=== PATIENT | male | born 2000 | race Two or more races ===

== ENCOUNTER 2021-02-26 13:47 | Outpatient (CLI) | payer OTHER | END 2021-02-26 14:13 | disposition home or self-care (01) | LOC: LAB 13:47 | PROVIDERS: ATTEND General Practice | DX: Z20.822 Contact with and (suspected) exposure to COVID-19 (principal) ==

== ENCOUNTER 2023-01-03 09:02 | Emergency (ER) | payer OTHER ==
[~2023-01-03] VITALS: Ht 170.2 cm; Wt 59.0 kg
== END 2023-01-03 12:12 | disposition home or self-care (01) ==
LOC: ER 09:02
DX: J03.80 Acute tonsillitis due to other specified organisms (principal); B96.89 Other specified bacterial agents as the cause of diseases classified elsewhere

== ENCOUNTER 2023-05-25 19:01 | Emergency (ER) | payer OTHER ==
[~2023-05-25] VITALS: Ht 170.2 cm; Wt 59.0 kg
[2023-05-25] MEDS ORDERED: FAMOTIDINE/PF 20 MG/2 ML VIAL IV PUSH ONE (20:15)
[2023-05-25] MEDS ORDERED: 0.9 % SODIUM CHLORIDE 1,000 ML IV ONE (20:15)
[2023-05-25] MEDS ORDERED: ONDANSETRON HCL 2 MG/ML VIAL IV ONE (20:15)
[2023-05-25] MEDS ORDERED: KETOROLAC TROMETHAMINE 30 MG VIAL IV ONE (20:30)
[2023-05-25 20:50] LABS: HEMATOCRIT 42.5 % (39.0-48.0); HEMOGLOBIN 14.6 g/dL (13-16.00); MEAN CELL VOLUME 81.1 fL (80.0-100.00); MEAN CORPUSCULAR HEMOGLOBIN 27.8 pg (27.00-32.0); MEAN CORPUSCULAR HGB CONC 34.3 g/dl (32.0-36.0); RED BLOOD COUNT 5.23 M/uL (4.00-6.00); RED CELL DISTRIBUTION WIDTH 13.6 % (11.5-14.5)
[2023-05-25 21:31] LABS: ALBUMIN 3.4 gm/dL (3.4-5.0); BILIRUBIN TOTAL 0.43 mg/dL (0.3-1.2); CALCIUM 8.8 mg/dL (8.5-10.1); CREATININE SERUM 1.29 mg/dL (0.70-1.30); GFR 68.43; GLOBULINA 3.9 G/DL (2.4-3.5); POTASSIUM 3.59 mEq/L (3.5-5.1); TOTAL PROTEIN 7.3 gm/dL (6.4-8.2)
[2023-05-25 21:45] LABS: URINE APPEARANCE Clear; URINE BILIRRUBIN Negative (NEGATIVE); URINE BLOOD Negative; URINE COLOR Yellow; URINE GLUCOSE Negative (NEGATIVE); URINE LEUKOCYTE Negative; URINE NITRATE Negative; URINE PROTEIN 30 (NEGATIVE)
[2023-05-25 21:49] LABS: URINE BACTERIA 31.4 uL (0.0-1933); URINE RBC 5.1 uL (0.0-20.8); URINE WBC 6.1 uL (0.0-23.2)
[2023-05-25 22:17] LABS: PLATELET COUNT 107 K/uL (150-450)
[2023-05-25] MEDS ORDERED: ONDANSETRON ODT4 MG SL (22:32)
[2023-05-25] MEDS ORDERED: PEPCID AC20 MG PO (22:32)
== END 2023-05-25 23:51 ==
LOC: ER 19:01
PROVIDERS: Nurse Practitioner Family
DX: A92.8 Other specified mosquito-borne viral fevers (principal); K29.70 Gastritis, unspecified, without bleeding; J32.9 Chronic sinusitis, unspecified; Z20.822 Contact with and (suspected) exposure to COVID-19